=== PATIENT | female | born 1955 | race Caucasian/White ===

== ENCOUNTER 2022-07-14 22:07 | Emergency (ER) | payer OTHER ==
[~2022-07-14] VITALS: Ht 134.6 cm; Wt 82.6 kg
[2022-07-14 22:59] VITALS: BP 150/80
--- NOTE | 2022-07-14 23:02 | NUR ---
TO LOBBY A/W BED AMBULATORY
--- NOTE | 2022-07-14 23:30 | NUR ---
SEEN AND EXAMINED BY TICO
[2022-07-14] MEDS ORDERED: NIRM1TAB PO (23:40)
[2022-07-14] MEDS ORDERED: ONDA-188 PO (23:40)
[2022-07-14] MEDS ORDERED: ONDANSETRON 4 MG ODT PO ONE (23:40)
[2022-07-15 00:05] VITALS: BP 126/79
--- NOTE | 2022-07-15 00:05 | NUR ---
Patient discharged with v/s stable. Written and verbal after care instructions given and explained. Patient alert, oriented and verbalized understanding of instructions. Ambulatory with steady gait. All questions addressed prior to discharge. ID band removed. Patient advised to follow up with PMD. Rx of ZOFRAN ODT given. Patient educated on indication of medication including possible reaction and side effects. Opportunity to ask questions provided and answered.
== END 2022-07-15 00:05 | disposition home or self-care (01) ==
LOC: MED 22:07
DX: U07.1 COVID-19 (principal)
CPT/HCPCS: 87426; 87804; 99283; Q0162